=== PATIENT | female | born 1935 | race Caucasian/White ===

== ENCOUNTER → 2022-03-05 | Outpatient (CLI) | payer MEDICARE ==
--- NOTE | 2022-03-05 19:35 | XR ---
EXAMINATION TYPE: XR shoulder limited LT DATE OF EXAM: 03/05/2022 COMPARISON: NONE HISTORY: 86-year-old female [id number], [id number], [id number] PAIN TECHNIQUE: Views FINDINGS: There is end-stage degenerative change of the left shoulder with [id number] articulation and chroni c bony remodeling of the humeral head articular surface. Prominent marginal spurring. Bony irregulari ty also present at the greater tuberosity. Moderate degenerative change AC joint. No acute fracture, subluxation, dislocation seen. IMPRESSION: End-stage [id number]-yo-[id number] glenohumeral joint OA. Moderate AC joint OA. Also, bony changes suggest chroni c rotator cuff tendinopathy.
--- NOTE | 2022-03-05 19:39 | XR ---
EXAMINATION TYPE: XR Hip Complete 2 views LT, XR knee complete 3 views LT DATE OF EXAM: 03/05/2022 COMPARISON: NONE HISTORY: 86-year-old female [id number], [id number], [id number] PAIN FINDINGS: Left hip: Osteopenia. End-stage kbdj-xi-[id number] left hip degenerative change with a associated bony remodeling of both the roof of the acetabulum and superior weight-bearing aspect of the femoral head. Extensive sub chondral sclerosis and cystic change and marginal spurring. No acute fracture seen. Left knee: Postsurgical changes of total knee arthroplasty. There is diffuse osteopenia. No periprosthetic fract ure is seen. Difficult to exclude some periprosthetic lucency at the cement bone interface of the tib ial tray component measuring up to 6 mm medially and laterally and 7 mm posteriorly. The femoral comp onent appears well seated. No joint effusion. Extensor mechanism appears intact. No acute fracture se en. IMPRESSION: 1. Left hip: Severe end-stage, lojy-rc-dgdb left hip OA with associated bony remodeling of both the a cetabular roof and superior femoral head. 2. Left knee: Status post left total knee arthroplasty. There seems to be prominent lucency measuring up to 7 mm at the cement bone interface of the tibial tray component. Correlate for changes from any outside priors to exclude loosening.
== END | disposition home or self-care (01) ==
LOC: RADXRYALE 15:11
PROVIDERS: ATTEND Family Medicine
DX: M19.012 Primary osteoarthritis, left shoulder (principal); M16.12 Unilateral primary osteoarthritis, left hip; M25.512 Pain in left shoulder; M25.552 Pain in left hip; M25.562 Pain in left knee; Z96.652 Presence of left artificial knee joint
CPT/HCPCS: 73502

== ENCOUNTER → 2022-04-19 | Outpatient (CLI) | payer MEDICARE ==
[2022-04-19 16:24] LABS: Partial Thromboplastin Time 23.8 sec (22.0-30.0); Prothrombin Time 10.3 sec (9.0-12.0)
[2022-04-19 22:30] LABS: HCT 44.3 % (37.2-46.3); HGB 14.4 g/dL (12.0-15.0); MCH 32.1 pg (27.0-32.0); MCHC 32.5 g/dL (32.0-37.0); MCV 98.9 fL (80.0-97.0); NRBC Per 100 WBC 0 /100 WBCS (0.0-0.0); Platelet Count 255 X 10*3/uL (140-440); RBC 4.48 X 10*6/uL (4.10-5.20); RDW 12.9 % (11.5-14.5); WBC 10.13 X 10*3/uL (4.50-10.00)
[2022-04-19 23:26] LABS: Anion Gap 13.4 mmol/L (10.00-18.00); Blood Urea Nitrogen 23.7 mg/dL (9.0-27.0); Carbon Dioxide 24.8 mmol/L (20.0-27.5); Non-African American GFR(CKD) 57.8 (60.0-200.0); Potassium 4.3 mmol/L (3.5-5.5)
== END | disposition home or self-care (01) ==
LOC: LABPAT 13:35
PROVIDERS: ATTEND Orthopaedic Surgery
DX: Z01.812 Encounter for preprocedural laboratory examination (principal); Z22.322 Carrier or suspected carrier of Methicillin resistant Staphylococcus aureus
CPT/HCPCS: 80051; 82565; 82947; 84520; 85027; 85610; 85730; 86850; 86900; 86901; 87070

== ENCOUNTER 2022-04-23 11:52 | Day surgery (SDC) | payer MEDICARE ==
[~2022-04-23 11:52] MED LIST: ACETAMINOPHEN TAB 500 MG TAB PO PRN; DEXAMETHASONE SOD PHOSPHATE 4 MG/ML 1 ML VIAL IV ONE; GABAPENTIN 300 MG CAP PO PRN; HYDROmorphone 0.5 MG/0.5 ML SYRINGE IVP PRN; LIDOCAINE 1% (10MG/ML) FOR IV START INTRADERMA PRN; MELOXICAM 7.5 MG TAB PO PRN; MIDAZOLAM 2 MG/2 ML VIAL IV PRN; ONDANSETRON 4 MG/2 ML VIAL IVP ONE; TRANEXAMIC ACID IN NACL,ISO-OS 1,000 MG in SALINE 1 100ML.BAG IVPB PRN
[2022-04-23] MEDS ORDERED: LACTATED RINGERS 1,000 ML IV ONE ×3 (12:30→17:07)
[2022-04-23] MEDS ORDERED: fentaNYL (PF) 50 MCG/1 ML VIAL IVP ONE (13:01)
[2022-04-23] MEDS ORDERED: MIDAZOLAM 2 MG/2 ML VIAL IVP ONE (13:01)
--- NOTE | 2022-04-23 13:10 | P.ANPRN ---
Procedure Note - Anesthesia - Nerve Block Performed Left Brodie Single Time Out Performed: Yes Date of Procedure: 04/23/22 Procedure Start Time: 13:00 Procedure Stop Time: 13:06 Location of Patient: PreOp Indication: Requested by Surgeon Specifically requested for management of pain by DrMino: Juancarlos Chopra Sedation Type: Sedate with meaningful contact maintained Preparation: Sterile Prep Position: Supine Needle Types: Pajunk Needle Gauge: 21 Ultrasound used to visualize needle placement: Yes Ultrasound used to observe medication spread: Yes Injectate: 0.5% Ropivacaine (see comment for volume) (25 ml +4 mg Dexamethasone) Blood Aspirated: No Pain Paresthesia on Injection Noted: No Resistance on Injection: Normal Image Stored and Saved: Yes Events: Uneventful and Well Tolerated
[2022-04-23] MEDS ORDERED: PHENYLEPHRINE-0.9% NACL SYG 1,000 MCG/10 ML SYRINGE ONE (13:51)
[2022-04-23] MEDS ORDERED: TRANEXAMIC ACID IN NACL,ISO-OS 1,000 MG/100 ML BAG ONE (13:51)
[2022-04-23] MEDS ORDERED: DEXAMETHASONE SOD PHOSPHATE 4 MG/ML 1 ML VIAL ONE (13:51)
[2022-04-23] MEDS ORDERED: PROPOFOL 10 MG/ML 20 ML VIAL IV ONE (13:51)
[2022-04-23] MEDS ORDERED: ROPIVACAINE 5 MG/ML 30 ML VIAL ONE (13:51)
[2022-04-23] MEDS ORDERED: ePHEDrine 50 MG/ML 1 ML VIAL ONE (13:51)
[2022-04-23] MEDS ORDERED: fentaNYL (PF) 50 MCG/ML 2 ML AMP ONE (13:51)
[2022-04-23] MEDS ORDERED: ceFAZolin 1,000 MG in SODIUM CHLORIDE 0.9% 1,000 ML IRRIGATION ONE (13:56)
[2022-04-23] MEDS ORDERED: ROPIVACAINE 5 MG/ML 30 ML VIAL MISCELLANE ONE (14:18)
--- NOTE | 2022-04-23 15:03 | P.OP ---
Date of Procedure: 04/23/22 Preoperative Diagnosis: Severe osteoarthritis left hip Postoperative Diagnosis: Severe osteoarthritis left hip Procedure(s) Performed: Left total arthroplasty with a direct anterior approach Implants: [employer] Polarstem standard size 2 [employer] R3, 3 hole hemispherical acetabular shell, 48 mm [employer] Reflection 6.5 mm cancellus screw, 20 mm 2 [employer] R3, XLPE 20 acetabular liner [employer] Oxinium femoral head 32 m, +4 All components were press-fit. The articulation is Oxinium on polyethylene. Anesthesia: spinal Surgeon: Juancarlos Chopra Category Specialist #1: Naila Ibrahim Estimated Blood Loss (ml): 500 Pathology: other (Femoral head) Condition: stable Disposition: PACU Indications for Procedure: After failure of conservative treatment we discussed the surgical and nonsurgical treatment options at length. Patient wishes to proceed with a total hip arthroplasty with a direct anterior approach. Complications specific to this procedure were discussed at length, including but not limited to infection, leg length discrepancy, dislocation, nerve injury, and fracture. Covid-19 was also discussed at length with the patient, and they are aware of the current policies and procedures. The patient was given the option of delaying surgery, but they elect to proceed knowing these risks. Patient is aware of all these complications and informed consent was obtained Operative Findings: The operative findings are consistent with severe osteoarthritis of the left hip Description of Procedure: The patient was seen and evaluated in the preoperative area and the consent was reviewed. The operative site was marked with a skin marker. The patient verified the procedure and operative site. A JAGDISH block was placed by duc bustamante in the preoperative area. The patient was then brought to the operating room and given preoperative antibiotics intravenously. 1 g of Tranexamic acid was also given intravenously. A spinal anesthetic was administered by the anesthesia department. The patient was then placed on the [place] table with the bony prominences well-padded. The hip area was then prepped with a ChloraPrep solution and draped in the usual sterile fashion. A universal timeout was then performed, which confirmed the patient's name, surgical site, ALLERGIES, and procedure being performed on the consent. Next the incision site was located at 1 cm distal and 4 cm lateral to the anterior superior iliac spine. The skin and subcutaneous tissues were sharply incised. Incision was carefully dissected down to the fascia overlying the tensor fascia edson muscle. This fascia was then incised in line with the muscle fibers. Care was taken to stay laterally in order to avoid injuring the lateral femoral cutaneous nerve. Next, using blunt finger dissection, the tensor fascia edson muscle was dissected off its investing fascia. The muscle was then carefully retracted laterally with a cobra retractor over the lateral neck of the femur. Next, the circumflex vessels were identified and cauterized using the Aquamantis device. The anterior hip capsule was then exposed. The capsule was then opened and an inverted T fashion. The retractors were then placed intracapsularly. The retractors were maintained intracapsular throughout the procedure. The proximal femur was then visualized. Fluoroscopic x-rays were then taken in order to evaluate the preoperative leg lengths. A small amount of traction was placed on the leg. The femoral neck was then osteotomized at the appropriate level above the lesser trochanter. A small wedge of bone was then removed from the remaining femoral head. Next, using a corkscrew the femoral head was removed from the acetabulum. On gross visual inspection, the femoral head had complete loss of articular cartilage and multiple periarticular osteophytes. The femoral head was then measured. Attention was then turned to the acetabulum. The acetabulum was exposed and any remaining labrum was excised. Sequential reaming of the acetabulum was performed using fluoroscopic guidance until there was a good bed of bleeding cancellus bone. When the appropriate size was reached, a trial was then placed. The position and fit of the trial was checked with fluoroscopy. The trial was then removed. Then, using fluoroscopic guidance, the final implant was impacted at 20 of anteversion and 40 of abduction, and fully seated in the acetabulum. 2 screws were then placed in the acetabulum. Again fluoroscopy was used to check position of the screws. Next, the liner was then impacted, with a 20 elevated liner located in the anterior superior quadrant. Component locking was confirmed. Attention was then directed to the femur. With the aid of the [place] table, the femur was externally rotated to approximately 130, extended, and adducted under the opposite leg. A side hook was then placed under the proximal femur, and the side hook elevator was used to elevate the proximal femur while releasing the capsule. Retractors were then placed. A capsular release was performed, as well as a release of the conjoined tendon, which afforded excellent visualization of the proximal femur. Next, a box osteotome was used to lateralize the proximal femur. A retail coverage merchandiser lead was then used to locate the femoral canal. Sequential broaching was then performed with appropriate size which afforded excellent fixation in the proximal femur. A trial was then placed with appropriate head and neck, and the hip was gently reduced with the aid of the [place] table. Fluoroscopy was then used to check position of the components, as well as to evaluate the leg lengths and offset. The leg lengths and offset were measured as closely as possible to ensure stability of the hip. The hip was then gently dislocated and the trials were then removed. Final implants were then impacted and the hip was again reduced. Final fluoroscopic x-rays confirmed that the components were in anatomic position. The leg lengths and offset were measured and were found to coincide with the trial measurements. The hip was also taken through range of motion, and found to be stable. The hip was then copiously irrigated with antibiotic solution with pulsatile lavage. The hip was then irrigated with Irrisept solution. The soft tissues were then injected with a ropivacaine solution. A second dose of 1 g of Tranexamic acid was also given intravenously. The fascia was then closed with 2-0 strata fix suture. The subcutaneous tissue was closed with 3-0 Vicryl. The subcuticular tissue was closed with 3-0 strata fix suture. The skin was then closed with Exofin skin glue. After the glue and dried, and Optifoam silver impregnated dressing was applied. The patient was then transferred to the recovery room in stable condition. The household personal assistant SAVANNAH Maya was required due to the complexity of surgery, and the need for skilled surgical dressing maker for positioning, draping, exposure, retraction, and closure of the wound.
[2022-04-23] MEDS ORDERED: NALOXONE 0.4 MG/ML 1 ML VIAL IV PRN (15:22)
[2022-04-23] MEDS ORDERED: MAGNESIUM HYDROXIDE 2,400 MG/10 ML CUP PO PRN (15:22)
[2022-04-23] MEDS ORDERED: HYDROmorphone 0.5 MG/0.5 ML SYRINGE IVP PRN ×3 (15:22)
[2022-04-23] MEDS ORDERED: ONDANSETRON 4 MG/2 ML VIAL IVP PRN (15:22)
[2022-04-23] MEDS ORDERED: HYDROcodone/APAP 5-325MG 1 EACH TAB PO PRN ×2 (15:25)
--- NOTE | 2022-04-23 15:40 | FL ---
EXAMINATION TYPE: FL guidance operating room, XR Hip Limited LT DATE OF EXAM: 04/23/2022 COMPARISON: NONE HISTORY: 86-year-old female anterior left hip replacement FINDINGS: Images during placement of left hip total arthroplasty for underlying end-stage OA. FLUOROSCOPY Fluoroscopy time of 22 seconds was used during left hip total arthroplasty. 4 image/s document/s the procedure. IMPRESSION: Intraoperative fluoroscopy as above.
--- NOTE | 2022-04-23 16:12 | XR ---
EXAMINATION TYPE: XR Hip Limited LT DATE OF EXAM: 04/23/2022 Comparison: None Clinical History: 86-year-old female Status post hip surgery, assess surgical alignment Findings: Image shows placement of left hip total arthroplasty. Acetabular cup and femoral stem components of t he prosthesis are well seated without periprosthetic fracture. Alignment grossly anatomic. Small left -sided pelvic phleboliths. Osteopenia. Soft tissue air related to recent operation. Impression: Uncomplicated postoperative appearance left hip total arthroplasty.
[2022-04-23] MEDS: LACTATED RINGERS 1,000 ML IV SCH (17:40)
[2022-04-23] MEDS: SODIUM CHLORIDE 0.9% 1,000 ML IV SCH (17:41)
--- NOTE | 2022-04-23 17:57 | P.CONS ---
History of Present Illness - Reason for Consult Consult date: 04/23/22 - History of Present Illness Patient is a 86-year-old female with history of hypertension, dyslipidemia presenting for elective left total arthroplasty. [facility] physicians has been consulted for medical management. She denies any chest pain, shortness of breath, abdominal pain, nausea, vomiting, diarrhea, constipation, or urinary complaints. She has minimal pain in her left hip at the moment. Vital signs postoperatively her within normal limits. No laboratory workup available for review. Patient seen and examined at bedside. Pertinent positives and negatives as discussed in HPI, a complete review of systems was performed and all other systems are negative. Vital signs reviewed General: nontoxic, no distress, appears at stated age Derm: warm, dry, left hip dressing clean, dry, intact Head: atraumatic, normocephalic, symmetric Eyes: EOMI, no lid lag, anicteric sclera, pupils equal round reactive to light ENT: Nose and ears atraumatic Neck: No thyromegaly, supple Mouth: no lip lesion, mucus membranes moist Cardiovascular: S1S2 reg, no murmur, no edema Lungs: clear to auscultation bilateral, no rhonchi, no rales, no wheeze, no accessory muscle use Abdominal: soft, nontender to palpation, no guarding, no appreciable organomegaly Ext: no gross muscle atrophy, no contractures Neuro: CN II-XII grossly intact Psych: Alert, oriented, appropriate affect Assessment/Plan: Severe left hip osteoarthritis Status post total left hip arthroplasty -Pain management, DVT prophylaxis per orthopedic surgery -PT/OT Chronic medical problems: Hypertension Dyslipidemia -Continue home medications -Holding Celebrex as patient already receiving pain medications Thank you for allowing us to participate in the care of this pleasant patient. Do not hesitate to contact us with questions. Someone can be reached from the [facility] hospitalist group all hours of the day at [phone] or via [employer]. Past Medical History Past Medical History: Hyperlipidemia, Hypertension Additional Past Medical History / Comment(s): USES WALKER History of Any Multi-Drug Resistant Organisms: None Reported Past Surgical History: Hysterectomy, Joint Replacement Additional Past Surgical History / Comment(s): BILATERAL KNEE REPLACEMENT Past Anesthesia/Blood Transfusion Reactions: No Reported Reaction Past Psychological History: No Psychological Hx Reported Smoking Status: Never smoker Past Alcohol Use History: None Reported Past Drug Use History: None Reported - Past Family History Mother Family Medical History: No Reported History Medications and Allergies Home Medications Medication Instructions Recorded Confirmed Type Celecoxib [CeleBREX] 200 mg PO BID 04/19/22 04/23/22 History Multivitamins, Thera [Multivitamin 1 tab PO DAILY 04/19/22 04/23/22 History (formulary)] Pravastatin Sodium [Pravachol] 40 mg PO QAM 04/19/22 04/23/22 History amLODIPine [Norvasc] 10 mg PO QAM 04/19/22 04/23/22 History Aspirin 325 mg PO BID #60 tab 04/23/22 Rx HYDROcodone/APAP 5-325MG [[place] 1 - 2 tab PO Q6HR PRN #32 tab 04/23/22 Rx 5-325] Sennosides [Senokot] 2 tab PO DAILY PRN #60 tablet 04/23/22 Rx Allergies Allergy/AdvReac Type Severity Reaction Status Date / Time Penicillins Allergy Rash/Hives Verified 04/23/22 12:21 Physical Exam Vitals: Vital Signs Temp Pulse Resp BP Pulse Ox 04/23/22 17:45 97.8 F 77 18 125/71 98 04/23/22 17:03 77 16 116/48 100 04/23/22 16:49 81 16 114/64 100 04/23/22 16:34 81 16 112/53 100 04/23/22 16:19 76 16 108/48 100 04/23/22 16:04 77 14 117/52 97 04/23/22 15:50 75 16 109/49 100 04/23/22 15:36 71 14 95/46 100 04/23/22 15:25 80 14 110/57 100 04/23/22 15:24 75 14 99/55 98 04/23/22 15:23 56 L 14 78/43 91 L 04/23/22 15:20 40 L 14 50/43 89 L 04/23/22 15:17 37 L 12 48/26 81 L 04/23/22 13:15 73 16 146/66 99 04/23/22 13:00 97.6 F 88 15 155/70 97 Intake and Output 04/23/22 04/23/22 04/23/22 06:59 14:59 22:59 Intake Total 1051 850 Output Total 500 Balance 1051 350 Intake: IV 1051 850 Output: Estimated Blood Loss 500 Other: Weight 70.9 kg
[2022-04-23] MEDS ORDERED: SENNOSIDES-DOCUSATE SODIUM 1 EACH TAB PO SCH (21:00)
[2022-04-23] MEDS: ASPIRIN 325 MG TAB PO SCH (21:49)
[2022-04-24 02:35] VITALS: RESP 16
--- NOTE | 2022-04-24 07:40 | P.DS ---
Providers Expected date of discharge: 04/24/22 Attending physician: Juancarlos Chopra Consults: 04/23/22 15:22 Consult Physician Routine Consulting Provider: Caroline Park Consult Reason/Comments: medical management Do you want consulting provider notified?: Yes Primary care physician: Juancarlos Yao - Discharge Diagnosis(es) (1) Primary localized osteoarthritis of left hip Current Visit: Yes Status: Acute (2) Status post total hip replacement, left Current Visit: Yes Status: Acute Hospital Course: This is an 86-year-old female with known history of degenerative arthritis of the left hip. The patient presents for evaluation. After discussion and consideration patient elects to proceed with total hip arthroplasty with direct anterior approach. The patient is seen preoperatively by primary care physician and cleared for surgery. Patient is admitted to [facility] on 04/23/2022 for total hip arthroplasty with direct anterior approach. The procedure is performed without complication or sequelae. The patient is doing well postoperatively. Labs and vital signs are stable on day of discharge. On day of discharge patient's hip incision is healing well. There is minimal erythema. There is no drainage noted at this time. There is minimal soft tissue swelling to the hip and thigh. Patient has full foot and ankle motion without difficulty or pain. Neurovascular status to the lower extremity is intact. Patient is discharged to home in good condition. Please see med rec for accurate list of home medications. Patient Condition at Discharge: Good Plan - Discharge Summary Discharge Rx Participant: No New Discharge Prescriptions: New Aspirin 325 mg PO BID #60 tab HYDROcodone/APAP 5-325MG [[place] 5-325] 1 - 2 tab PO Q6HR PRN #32 tab PRN Reason: Pain Sennosides [Senokot] 2 tab PO DAILY PRN #60 tablet PRN Reason: Constipation No Action amLODIPine [Norvasc] 10 mg PO QAM Multivitamins, Thera [Multivitamin (formulary)] 1 tab PO DAILY Celecoxib [CeleBREX] 200 mg PO BID Pravastatin Sodium [Pravachol] 40 mg PO QAM Discharge Medication List Celecoxib [CeleBREX] 200 mg PO BID 04/19/22 [History] Multivitamins, Thera [Multivitamin (formulary)] 1 tab PO DAILY 04/19/22 [History] Pravastatin Sodium [Pravachol] 40 mg PO QAM 04/19/22 [History] amLODIPine [Norvasc] 10 mg PO QAM 04/19/22 [History] Aspirin 325 mg PO BID #60 tab 04/23/22 [Rx] HYDROcodone/APAP 5-325MG [[place] 5-325] 1 - 2 tab PO Q6HR PRN #32 tab 04/23/22 [Rx] Sennosides [Senokot] 2 tab PO DAILY PRN #60 tablet 04/23/22 [Rx] Follow up Appointment(s)/Referral(s): Juancarlos Chopra DO [Doctor of Osteopathic Medicine] - 2 Weeks Activity/Diet/Wound Care/Special Instructions: Weightbearing as tolerated with walker. Leave dressing intact. Dressing may be removed by home care nurse or by patient in 7 days. Then change dressing twice daily until follow up. May shower with initial dressing intact and after removal. If dressing become saturated, please remove. Please take aspirin 325mg twice daily for 30 days to prevent blood clots. Recommend use of compression stockings daily until follow up to help prevent swelling and blood clots. May remove at night before sleeping. Please follow-up with [facility] in 2 weeks and call with any questions or concerns, . Discharge Disposition: HOME WITH HOME HEALTH SERVICES
[2022-04-24 07:45] VITALS: BP 107/64; PULSE 77; TEMP 98.1
[2022-04-24] MEDS: ASPIRIN 325 MG TAB PO SCH (08:09)
[2022-04-24] MEDS: LACTATED RINGERS 1,000 ML IV SCH (08:25)
[2022-04-24] MEDS: SODIUM CHLORIDE 0.9% 1,000 ML IV SCH (08:25)
[2022-04-24] MEDS ORDERED: amLODIPine 10 MG TAB PO SCH (09:00)
[2022-04-24] MEDS ORDERED: PRAVASTATIN SODIUM 40 MG TAB PO SCH (09:00)
[2022-04-24] MEDS ORDERED: MULTIVITAMINS, THERA 1 EACH TAB PO SCH (09:00)
[2022-04-24 09:42] LABS: Basophils # (A) 0.02 X 10*3/uL (0.00-0.10); Basophils % (A) 0.2 %; Eosinophils # (A) 0 X 10*3/uL (0.04-0.35); Eosinophils % (A) 0 %; HCT 33.3 % (37.2-46.3); HGB 10.7 g/dL (12.0-15.0); Immature Grans, Automated 0.7 %; Lymphocytes % (A) 10.9 %; MCH 31.5 pg (27.0-32.0); MCHC 32.1 g/dL (32.0-37.0); MCV 97.9 fL (80.0-97.0); Mean Platelet Volume 11.3 fL (9.5-12.2); Monocytes # (A) 0.78 X 10*3/uL (0.20-1.00); Monocytes % (A) 7.1 %; NRBC Per 100 WBC 0 /100 WBCS (0.0-0.0); Neutrophils # (A) 8.92 X 10*3/uL (1.80-7.70); Neutrophils % (A) 81.1 %; Platelet Count 224 X 10*3/uL (140-440)
--- NOTE | 2022-04-24 10:39 | P.PN ---
Subjective Progress Note Date: 04/24/22 Hospital course: Patient is a very pleasant 86-year-old female with a past medical history of osteoarthritis, hypertension and hyperlipidemia. She is currently admitted under orthopedic surgery team status post elective left total hip arthroplasty. We have been consulted for continued medical management throughout patient's hospitalization. Physical exam: Patient seen and fully evaluated at bedside this morning. Patient appears to be doing well. Patient sitting up in chair and states she is ready to go home. Patient reports controlled postoperative pain and denies having any nausea, vomiting, or any other complaints or concerns at this time. Patient has worked with physical therapy and has been doing well ambulating with walker. Morning labs reviewed and stable with postoperative hemoglobin of 10.7 and mild reactive leukocytosis with WBC count of 11.0. Vital signs are unremarkable with morning pressure 107/64, heart rate 77, respiratory rate 16, and SpO2 of 97% on room air. Patient is medically cleared for discharge at this time. Vital signs reviewed and stable. General: Nontoxic, no distress and appears stated age. Derm: Skin warm and dry, normal coloration for ethnicity. Head: Atraumatic, normocephalic and symmetric. Eyes: EOMs intact, no lid lag, and anicteric sclera Mouth: no lip lesions, mucus membranes moist Cardiovascular: regular rate and rhythm with normal S1S2, no murmur, positive posterior tibial pulses bilaterally, and cap refill < 2 seconds. Lungs: Respirations even, regular, and unlabored on room air. Lungs CTA bilaterally, no rhonchi, no rales, no wheezing, and no accessory muscle usage. Abdominal: soft, nontender to palpation, no guarding, no appreciable organomegaly Ext: ROM intact. No gross muscle atrophy, no edema, no contractures Neuro: Speech clear, face symmetrical and CN II-XII grossly intact with no noted focal neuro deficits Psych: Alert and oriented to person, place, time, and situation. Appropriate and pleasant affect. Assessment and Plan of Care: Acute postoperative blood loss anemia, expected finding -Hemoglobin stable at 10.7, no need for transfusion or further reevaluation as hemoglobin is currently stable and patient has no signs of active bleeding at this time. Status post left total hip arthroplasty -Management per primary admitting orthopedic surgery team including DVT prophylaxis, pain management, wound/dressing care, weightbearing, and PT/OT. -Currently DVT prophylaxis with aspirin. Hypertension -Blood pressure is stable on current medication regimen with amlodipine, recommend continuation of daily amlodipine with continued close monitoring of vital signs. Hyperlipidemia -Recommending continued daily medication with pravastatin and continuing to follow a heart healthy diet. Thank you for allowing us to participate in the care of this pleasant patient. Do not hesitate to contact us with questions. Someone can be reached from the [facility] hospitalist group all hours of the day at [phone] or via [employer]. Brannon Johns NP rendered care for this patient independently, reviewed the findings and plan as documented in the note above. I did not physically speak with or examine the patient on this date. Objective - Vital Signs Vital signs: Vital Signs Temp 98.1 F 04/24/22 07:44 Pulse 77 04/24/22 07:44 Resp 16 04/24/22 07:44 BP 107/64 04/24/22 07:44 Pulse Ox 99 04/24/22 07:44 FiO2 Intake & Output 04/23/22 04/24/22 04/24/22 18:59 06:59 18:59 Intake Total 1901 Output Total 500 140 Balance 1401 -140 Weight 70.9 kg Intake: IV 1901 Output: Post Void Residual 140 Estimated Blood Loss 500 Other: Voiding Method Bedside Commode # Voids 2 - Labs CBC & Chem 7: 04/24/22 04:57
== END 2022-04-24 12:48 | disposition home health service (06) ==
LOC: OR 11:52 → 4SSUR 15:15 → OR 04-24 12:48
PROVIDERS: ATTEND Orthopaedic Surgery
DX: M16.12 Unilateral primary osteoarthritis, left hip (principal); G89.18 Other acute postprocedural pain; I10 Essential (primary) hypertension; E78.49 Other hyperlipidemia; Z79.899 Other long term (current) drug therapy; M19.012 Primary osteoarthritis, left shoulder
CPT/HCPCS: 97161; 97535; 97166; 64447; 86900; 86901; 85025; 86850; 73501; 27130; C1776; J2250; J1100; J0690 ×3; J2405; J3010 ×2; J2795; J2370; J2704; J1170; 88300

== ENCOUNTER → 2023-05-13 | Outpatient (CLI) | payer MEDICARE ==
--- NOTE | 2023-05-14 11:55 | CA ---
Transthoracic Echo Report Name: Sharmila Santizo Age: 87 Gender: F : 1935 Exam Date: 05/13/2023 14:20 Exam Location: [facility] Ht (in): 63 Wt (lb): 145 Ordering Physician: Juancarlos Yao DO Attending/Referring Phys: [employer] Attorney Liana Jean RDCS Procedure CPT: Indications: R01.1 MURMUR R60.9 EDEMA Cardiac Hx: Technical Quality: Good Contrast 1: Total Dose (mL): Contrast 2: Total Dose (mL): MEASUREMENTS (Male / Female) Normal Values 2D ECHO LV Diastolic Diameter PLAX 4.4 cm 4.2 - 5.9 / 3.9 - 5.3 cm LV Systolic Diameter PLAX 3.0 cm IVS Diastolic Thickness 1.2 cm 0.6 - 1.0 / 0.6 - 0.9 cm LVPW Diastolic Thickness 1.2 cm 0.6 - 1.0 / 0.6 - 0.9 cm LV Relative Wall Thickness 0.5 RV Internal Dim ED PLAX 2.9 cm LA Systolic Diameter LX 2.9 cm 3.0 - 4.0 / 2.7 - 3.8 cm LV Diastolic Volume MOD BP 67.8 cm??? 67 - 155 / 56 - 104 cm??? LV Systolic Volume MOD BP 22.0 cm??? 22 - 58 / 19 - 49 cm??? LV Ejection Fraction MOD BP 67.6 % >= 55 % LV Cardiac Index MOD BP 1860.5 cm???/min???m??? LV Diastolic Volume MOD 4C 66.3 cm??? LV Systolic Volume MOD 4C 23.1 cm??? LV Ejection Fraction MOD 4C 65.1 % LV Cardiac Index MOD 4C 1754.0 cm???/min???m??? LV Diastolic Length 4C 6.3 cm LV Systolic Length 4C 4.4 cm LV Diastolic Volume MOD 2C 70.4 cm??? LV Systolic Volume MOD 2C 18.8 cm??? LV Ejection Fraction MOD 2C 73.2 % LV Cardiac Index MOD 2C 2092.7 cm???/min???m??? LV Diastolic Length 2C 6.2 cm LV Systolic Length 2C 5.0 cm LA Volume 52.8 cm??? 18 - 58 / 22 - 52 cm??? LA Volume Index 30.6 cm???/m??? 16 - 28 cm???/m??? M-MODE Aortic Root Diameter MM 2.9 cm MV E Point Septal Separation 1.3 cm AV Cusp Separation MM 1.9 cm DOPPLER AV Peak Velocity 182.8 cm/s AV Peak Gradient 13.4 mmHg MV Area PHT 3.5 cm??? Mitral E Point Velocity 78.3 cm/s Mitral A Point Velocity 68.0 cm/s Mitral E to A Ratio 1.2 MV Deceleration Time 214.1 ms MV E' Velocity 7.7 cm/s Mitral E to MV E' Ratio 10.2 TR Peak Velocity 266.9 cm/s TR Peak Gradient 28.5 mmHg Right Ventricular Systolic Press 33.2 mmHg FINDINGS Left Ventricle Left ventricular ejection fraction is estimated at 55-60 %. Left ventricular cavity size normal. Mildly concentric LVH Right Ventricle Normal right ventricular size. Right ventricular systolic pressure within normal limits. Right Atrium Normal right atrial size. Left Atrium Mild LA dilatation. Mitral Valve Structurally normal mitral valve. Trace mitral regurgitation. Aortic Valve Trileaflet aortic valve. No aortic valve stenosis or regurgitation. Tricuspid Valve Structurally normal tricuspid valve. Mild tricuspid regurgitation. Pulmonic Valve Structurally normal pulmonic valve. Trace pulmonic regurgitation. Pericardium No pericardial effusion. Aorta Normal size aortic root and proximal ascending aorta. CONCLUSIONS Left ventricular ejection fraction is estimated at 55-60 %. Mildly concentric LVH. Mild LA dilatation. No significant valvular dysfunction RVSP estimated at 33 mmHg No pericardial effusion Previewed by: Dr Micah Narvaez (Electronically Signed) Final Date: 14 May 2023 11:55
== END | disposition home or self-care (01) ==
LOC: RADECHMAIN 14:02
PROVIDERS: ATTEND Family Medicine
DX: I51.7 Cardiomegaly (principal); R01.1 Cardiac murmur, unspecified; R60.9 Edema, unspecified
CPT/HCPCS: 93306